=== PATIENT | female | born 1985 | race Caucasian/White ===

== ENCOUNTER 2016-09-09 23:35 | Emergency (ER) | payer OTHER ==
[~2016-09-09 23:35] MED LIST: LORTAB 5/500 TA1 TA1 PO; ORTHO TRI-7 DAYSX 3 PO; PEN-VEE K PO; PREDNISONE PO; PROZAC PO; TRAZODONE PO
== END 2016-09-10 02:00 | disposition expired ==
LOC: CED 23:35
DX: I46.9 Cardiac arrest, cause unspecified (principal); K92.2 Gastrointestinal hemorrhage, unspecified
CPT/HCPCS: 92950; 99285